=== PATIENT | female | born 1990 | race Asian ===

== ENCOUNTER 2017-10-08 18:24 | Emergency (ER) | payer BC ==
[~2017-10-08] VITALS: Ht 167.6 cm; Wt 68.0 kg
[2017-10-08 18:48] VITALS: BP 137/90
[2017-10-08] MEDS ORDERED: Neosporin Oint Ud Pkt TOP ONE (19:00)
[2017-10-08] MEDS ORDERED: Tylenol #3 tab (300mg/30mg) PO ONE (19:00)
[2017-10-08 19:22] VITALS: BP 128/92
[2017-10-08 19:41] VITALS: BP 113/67
--- NOTE | 2017-10-08 19:42 | Diagnostic Imaging Report ---
EXAM: XR Chest, 1 View CLINICAL HISTORY: PAIN TECHNIQUE: Frontal view of the chest. COMPARISON: No relevant prior studies available. FINDINGS: Lungs: Unremarkable. No consolidation. Pleural space: Unremarkable. No pneumothorax. Heart: Unremarkable. No cardiomegaly. Mediastinum: Unremarkable. Bones/joints: No acute osseous abnormality. IMPRESSION: No acute cardiopulmonary process.
[2017-10-08] MEDS ORDERED: BACITRACIN15 GM TOPIC (19:55)
[2017-10-08] MEDS ORDERED: ROBAXIN-750750 MG PO (19:55)
[2017-10-08] MEDS ORDERED: TYLENOL EXTRA500 MG ORAL (19:55)
[2017-10-08 20:01] VITALS: BP 113/67
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
== END 2017-10-08 20:00 | disposition home or self-care (01) ==
LOC: EMR 19:11
DX: S20.212A Contusion of left front wall of thorax, initial encounter (principal); V43.52XA Car driver injured in collision with other type car in traffic accident, initial encounter; Y93.9 Activity, unspecified; Y92.410 Unspecified street and highway as the place of occurrence of the external cause; S40.812A Abrasion of left upper arm, initial encounter
CPT/HCPCS: 71045; 99284